=== PATIENT | female | born 1960 | race American Indian/Alaskan Native ===

== ENCOUNTER 2018-03-11 14:23 | Inpatient (IN) | payer OTHER ==
--- NOTE | 2018-03-11 15:17 | XRay Report ---
AP CHEST: HISTORY: chest pain AP view of the chest demonstrates a normal mediastinal and cardiac contour with clear lungs and normal bony and soft tissue structures. IMPRESSION: Unremarkable AP chest.
[2018-03-11 15:34] LABS: Basophils % (Auto) 0.8 % (0.0-1.8); Eosinophils # (Auto) 0.2 K/mm3 (0.0-0.4); Hematocrit 38.9 % (30.3-42.9); Hemoglobin 13.3 gm/dl (10.1-14.3); Lymphocytes # (Auto) 2.1 K/mm3 (1.2-5.4); Lymphocytes % (Auto) 36.2 % (13.4-35.0); Mean Corpuscular HGB Conc 34 % (30-34); Mean Corpuscular Volume 92 fl (79-97); Monocytes # (Auto) 0.6 K/mm3 (0.0-0.8); Platelet Count 241 K/mm3 (140-440); Red Blood Count 4.21 M/mm3 (3.65-5.03); Red Cell Distribution Width 13.7 % (13.2-15.2)
[2018-03-11] MEDS ORDERED: NITRO-BID 2% TP ONE (15:36)
[2018-03-11] MEDS ORDERED: SUBLIMAZE IV ONE (15:36)
[2018-03-11] MEDS ORDERED: ASPIRIN PO ONE (15:36)
[2018-03-11] MEDS ORDERED: ZOFRAN IV ONE (15:36)
[2018-03-11 15:42] LABS: INR 0.97 (0.87-1.13)
[2018-03-11 15:43] LABS: Partial Thromboplastin Time 30.3 Sec. (24.2-36.6)
--- NOTE | 2018-03-11 15:52 | Emergency Department Report ---
HPI - General Chief Complaint: Chest Pain Time Seen by Provider: 03/11/18 15:26 - HPI HPI: Room 20 The patient is a 57-year-old female presenting with chief complaint chest pain. The patient states today at 13:00 while sitting at her desk she developed substernal chest pain sharp in nature. Patient states the pain is been intermittent. Patient denies shortness of breath, nausea/vomiting or diaphoresis. Patient states she was given sublingual nitroglycerin by EMS and her pain improved. Patient states now her pain is coming back. Patient gets h er pain score of 4/10. The patient states her last stress test occurred approximately 2 years ago she's never had a cardiac catheterization Location: Chest Duration: Intermittent since 13:00 Quality: Sharp Severity: 4/10 Modifying factors: [see above] Context: [see above] Mode of transportation: [not driving] ED Past Medical Hx - Past Medical History Previous Medical History?: Yes Hx Hypertension: Yes Additional medical history: Uterine Ca remission - Surgical History Past Surgical History?: No Additional Surgical History: Hysterectomy, - Social History Smoking Status: Former Smoker (none 2 years) Substance Use Type: None (denies illicit drug use), Alcohol (occasional) ED Review of Systems ROS: Stated complaint: CHEST PAIN Other details as noted in HPI Constitutional: denies: diaphoresis Eyes: denies: eye pain ENT: denies: throat pain Respiratory: denies: shortness of breath Cardiovascular: chest pain Endocrine: no symptoms reported Gastrointestinal: denies: nausea, vomiting Genitourinary: denies: dysuria Musculoskeletal: denies: back pain Neurological: denies: headache Physical Exam - Physical Exam Vital Signs: Vital Signs 03/11/18 03/11/18 03/11/18 14:39 14:45 15:00 Temperature 97.9 F Pulse Rate 69 72 74 Respiratory 16 10 L Rate Blood Pressure 162/78 162/78 O2 Sat by Pulse 96 95 Oximetry 03/11/18 15:30 Temperature Pulse Rate 74 Respiratory 18 Rate Blood Pressure 154/88 O2 Sat by Pulse 95 Oximetry Physical Exam: GENERAL: The patient is well-developed well-nourished female sitting on stretcher appearing to be in mild discomfort. [] HEENT: Normocephalic. Atraumatic. Extraocular motions are intact. Patient has moist mucous membranes. NECK: Supple. Trachea midline CHEST/LUNGS: Clear to auscultation. There is no respiratory distress noted. HEART/CARDIOVASCULAR: Regular. There is no tachycardia. There is no gallop rub or murmur. ABDOMEN: Abdomen is soft, nontender. Patient has normal bowel sounds. There is no abdominal distention. SKIN: There is no rash. There is trace bilateral lower extremity pitting edema. There is no diaphoresis. NEURO: The patient is awake, alert, and oriented. The patient is cooperative. The patient has normal speech MUSCULOSKELETAL: There is no evidence of acute injury. ED Course Vital Signs 03/11/18 03/11/18 03/11/18 14:39 14:45 15:00 Temperature 97.9 F Pulse Rate 69 72 74 Respiratory 16 10 L Rate Blood Pressure 162/78 162/78 O2 Sat by Pulse 96 95 Oximetry 03/11/18 15:30 Temperature Pulse Rate 74 Respiratory 18 Rate Blood Pressure 154/88 O2 Sat by Pulse 95 Oximetry ED Medical Decision Making - Lab Data Result diagrams: 03/11/18 14:58 03/11/18 14:58 Laboratory Tests 03/11/18 03/11/18 03/11/18 14:58 14:58 14:58 WBC 5.7 RBC 4.21 Hgb 13.3 Hct 38.9 MCV 92 MCH 32 MCHC 34 RDW 13.7 Plt Count 241 Lymph % (Auto) 36.2 H [place] % (Auto) 10.0 H Eos % (Auto) 3.0 Baso % (Auto) 0.8 Lymph # 2.1 [place] # 0.6 Eos # 0.2 Baso # 0.0 Seg Neutrophils % 50.0 Seg Neutrophils # 2.9 PT 13.3 INR 0.97 APTT 30.3 Sodium 140 Potassium 4.0 Chloride 102.5 Carbon Dioxide 26 Anion Gap 16 BUN 15 Creatinine 0.8 Estimated GFR > 60 BUN/Creatinine Ratio 19 Glucose 96 Calcium 9.4 Total Bilirubin 0.60 AST 24 ALT 20 Alkaline Phosphatase 95 Troponin T < 0.010 Total Protein 7.8 Albumin 4.0 Albumin/Globulin Ratio 1.1 - EKG Data -: EKG Interpreted by Ar EKG shows normal: sinus rhythm Rate: normal - EKG Data When compared to previous EKG there are: previous EKG unavailable Interpretation: nonspecific ST-T wave peace (T-wave inversions in leads 3 and V3) - Radiology Data Radiology results: report reviewed (chest x-ray), image reviewed (chest x-ray) interpreted by me: Chest x-ray-no focal infiltrates, no pneumothorax [facility] [address] [place] [address] XRay Report Signed Patient: JIMENEZ MARCUS MR#: [id number] : 1960 Acct:[id number] Age/Sex: 57 / F ADM Date: 03/11/18 Loc: ED Attending Dr: Ordering Physician: KIRTI DUFFY MD Date of Service: 03/11/18 Procedure(s): XR chest 1V ap Accession Number(s): [id number] cc: ED MD TATI Fluoro Time In Minutes: AP CHEST: HISTORY: chest pain AP view of the chest demonstrates a normal mediastinal and cardiac contour with clear lungs and normal bony and soft tissue structures. IMPRESSION: Unremarkable AP chest. Transcribed By: TTR Dictated By: TU TUCKER JR, MD Electronically Authenticated By: TU TUCKER JR, MD Signed Date/Time: 03/11/181514 DD/ 14 TD/TT: 03/11/181514 - Differential Diagnosis ACS, pericarditis, GERD Critical care attestation.: If time is entered above; I have spent that time in minutes in the direct care of this critically ill patient, excluding procedure time. ED Disposition Clinical Impression: Chest pain Disposition: OP ADMIT IP TO THIS HOSP Is pt being admited?: Yes Does the pt Need Aspirin: Yes Condition: Fair Instructions: Chest Pain (ED) Referrals: PRIMARY CARE, [Primary Care Provider] - 3-5 Days Time of Disposition: 15:58 (hospitalist paged (Dr Godfrey))
[2018-03-11 15:55] LABS: Alanine Aminotransferase 20 units/L (7-56); BUN/Creatinine Ratio 19; Blood Urea Nitrogen 15 mg/dL (7-17); Calcium 9.4 mg/dL (8.4-10.2); Hemolysis Index 4
--- NOTE | 2018-03-11 16:19 | History and Physical Report ---
History of Present Illness Chief complaint: My chest hurts History of present illness: 57 YO Female with HTN, Uterine Cancer, Obesity presents to ED for evaluation. Pt states that she has experienced pain in her chest over the past 1 day. Pt states that she experienced acute onset of pain in her chest around 1300 hrs. Pt states that pain is 4-8/10, midsternal, sharp, crushing in nature, intermittent, nonradiating, not worsened with exertion, not relieved with rest, relieved with nitro. Pt acknowledges shortness of breath and decreased exercise tolerance. EMS notified, and upon arrival, the patient found to have symptoms consistent with ACS. Pt transported to [facility] for further care and evaluation. Pt seen and ev aluated in ED and found to have symptoms consistent with ACS as well as Diastolic CHF. Pt admitted to telemetry. Cardiology consulted in ED. Past History Past Medical History: cancer, hypertension Past Surgical History: hysterectomy Social history: single. denies: smoking, alcohol abuse, prescription drug abuse Family history: hypertension Medications and Allergies Allergies Allergy/AdvReac Type Severity Reaction Status Date / Time No Known Allergies Allergy Unverified 03/11/18 14:45 Review of Systems Constitutional: no weight loss, no weight gain, no fever, no chills Ears, nose, mouth and throat: no ear pain, no ear discharge, no tinnitis, no decreased hearing, no nose pain, no nasal congestion Breasts: no change in shape, no swelling, no mass Cardiovascular: chest pain, shortness of breath, dyspnea on exertion, decreased exercise tolerance, no palpitations, no rapid/irregular heart beat Respiratory: no cough, no cough with sputum, no excessive sputum Gastrointestinal: no nausea, no vomiting, no diarrhea, no constipation Genitourinary Female: no pelvic pain, no flank pain, no menorrhagia, no dysuria, no urinary frequency Rectal: no pain, no incontinence, no bleeding Musculoskeletal: no neck stiffness, no neck pain, no shooting arm pain, no arm numbness/tingling Integumentary: no rash, no pruritis, no redness, no sores, no wounds Neurological: no transient paralysis, no paralysis, no weakness, no parathesias, no numbness, no tingling Psychiatric: no memory loss, no change in sleep habits, no sleep disturbances, no insomnia, no hypersomnia, no change in appetite Endocrine: no cold intolerance, no heat intolerance, no polyphagia, no excessive thirst, no polydipsia, no polyuria Hematologic/Lymphatic: no easy bruising, no easy bleeding, no lymphadenopathy, no lymphedema Allergic/Immunologic: no urticaria, no allergic rhinitis, no wheezing, no persistent infections, no anaphylaxis, no angioedema Exam - Constitutional Vitals: Temp Pulse Resp BP Pulse Ox 97.9 F 74 18 154/88 95 03/11/18 14:45 03/11/18 15:30 03/11/18 15:30 03/11/18 15:30 03/11/18 15:30 General appearance: Present: mild distress - EENT Eyes: Present: PERRL ENT: hearing intact, clear oral mucosa - Neck Neck: Present: supple, normal ROM - Respiratory Respiratory effort: normal Respiratory: bilateral: CTA - Cardiovascular Heart Sounds: Present: S1 & S2. Absent: rub, click - Extremities Extremities: pulses symmetrical Extremity abnormal: edema Peripheral Pulses: within normal limits - Abdominal General gastrointestinal: Present: soft, non-tender, non-distended, normal bowel sounds Female genitourinary: Present: normal - Integumentary Integumentary: Present: clear, warm, dry - Musculoskeletal Musculoskeletal: gait normal, strength equal bilaterally - Psychiatric Psychiatric: appropriate mood/affect, intact judgment & insight - Neurologic Neurologic: CNII-XII intact, moves all extremities Results - Labs CBC & Chem 7: 03/11/18 14:58 03/11/18 14:58 Labs: Abnormal lab results 03/11/18 Range/Units 14:58 Lymph % (Auto) 36.2 H (13.4-35.0) % [place] % (Auto) 10.0 H (0.0-7.3) % Assessment and Plan - Patient Problems (1) ACS (acute coronary syndrome) Current Visit: Yes Status: Acute Plan to address problem: Admit to telemetry, serial cardiac enzymes, ekg, telemetry, morphine, supplemental oxygen, nitro, aspirin (2) Diastolic CHF Current Visit: Yes Status: Acute Qualifiers: Heart failure chronicity: acute on chronic Qualified Code(s): I50.33 - Acute on chronic diastolic (congestive) heart failure Plan to address problem: Admit to telemetry, echo, strict I/O, thyroid panel, bnp, d dimer, supportive care, chest x ray, pulse oximetry (3) HTN (hypertension) Current Visit: Yes Status: Acute Qualifiers: Hypertension type: essential hypertension Qualified Code(s): I10 - E ssential (primary) hypertension Plan to address problem: Monitor BP q shift, continue medical management (4) Obesity (BMI 30-39.9) Current Visit: Yes Status: Acute Plan to address problem: Balanced diet, increased physical activity, supportive care (5) DVT prophylaxis Current Visit: Yes Status: Acute Plan to address problem: scd to BLE while in bed.
[2018-03-11] MEDS ORDERED: PROVENTIL IH PRN (16:37)
[2018-03-11] MEDS ORDERED: ZOFRAN IV PRN (16:37)
[2018-03-11] MEDS ORDERED: SODIUM CHLORIDE FLUSH SYRINGE 10 ML IV PRN ×2 (16:37)
[2018-03-11] MEDS ORDERED: MORPHINE IV PRN (16:37)
[2018-03-11 17:20] LABS: Chol/HDL Ratio 2.62 %
[2018-03-11] MEDS: TYLENOL PO PRN (21:02)
[2018-03-11] MEDS: PEPCID PO SCH (21:02)
[2018-03-11] MEDS: SODIUM CHLORIDE FLUSH SYRINGE 10 ML IV SCH (21:03)
[2018-03-12] MEDS ORDERED: LEXISCAN IV ONE ×2 (09:18)
--- NOTE | 2018-03-12 11:21 | Consultation ---
History of Present Illness Consult date: 03/12/18 Consult reason: chest pain History of present illness: 57-year-old woman with no prior cardiac history, presented to the hospital with single episode of substernal chest pain which occurred while at work. In the emergency room, ECG was normal sinus rhythm, normal ECG. Cardiac isoenzymes were negative. She was admitted for cardiac chest pain workup. Today, she underwent a stress test in which she exercised for 6 minutes of the Gopal protocol, completed stage II, and achieved 7 Mets. Test was stopped for fatigue. There was no chest pain with exercise. The ECGs were sinus rhythm at baseline, on with exercise, there were no ST changes of ischemia. Myocardial perfusion imaging is pending for final interpretation. Past History Past Medical History: cancer, hypertension Past Surgical History: hysterectomy Social history: single. denies: smoking, alcohol abuse, prescription drug abuse Family history: hypertension Medications and Allergies Allergies Allergy/AdvReac Type Severity Reaction Status Date / Time No Known Allergies Allergy Unverified 03/11/18 14:45 Active Meds: Active Medications Acetaminophen (Tylenol) 650 mg PO Q4H PRN PRN Reason: Pain MILD(1-3)/Fever >100.5/CALDERON Last Admin: 03/11/18 21:02 Dose: 650 mg Documented by: Albuterol (Proventil) 2.5 mg IH Q4HRT PRN PRN Reason: Shortness Of Breath Famotidine (Pepcid) 20 mg PO BID [facility] Last Admin: 03/11/18 21:02 Dose: 20 mg Documented by: Morphine Sulfate (Morphine) 2 mg IV Q4H PRN PRN Reason: Pain, Moderate (4-6) Ondansetron HCl (Zofran) 4 mg IV Q8H PRN PRN Reason: Nausea And Vomiting Sodium Chloride (Sodium Chloride Flush Syringe 10 Ml) 10 ml IV BID [facility] Last Admin: 03/11/18 21:03 Dose: 10 ml Documented by: Sodium Chloride (Sodium Chloride Flush Syringe 10 Ml) 10 ml IV PRN PRN PRN Reason: LINE FLUSH Sodium Chloride (Sodium Chloride Flush Syringe 10 Ml) 10 ml IV PRN PRN PRN Reason: LINE FLUSH Review of Systems Cardiovascular: chest pain, no orthopnea, no palpitations, no rapid/irregular heart beat, no edema, no syncope, no lightheadedness, no shortness of breath Physical Examination Vital Signs Pulse 69 03/11/18 14:39 General appearance: no acute distress HEENT: Positive: PERRL Neck: Positive: neck supple Cardiac: Positive: Reg Rate and Rhythm Lungs: Positive: clear to auscultation Neuro: Positive: Grossly Intact Abdomen: Positive: Soft Female genitourinary: deferred Skin: Positive: Clear Extremities: Absent: edema Results 03/11/18 14:58 03/11/18 14:58 Cardiac Enzymes 03/11/18 Range/Units 14:58 AST 24 (5-40) units/L Coagulation 03/11/18 Range/Units 14:58 PT 13.3 (12.2-14.9) Sec. INR 0.97 (0.87-1.13) APTT 30.3 (24.2-36.6) Sec. Lipids 03/11/18 Range/Units 14:58 Triglycerides 54 (2-149) mg/dL Cholesterol 155 (50-199) mg/dL HDL Cholesterol 59 (40-59) mg/dL Cholesterol/HDL Ratio 2.62 % CBC 03/11/18 Range/Units 14:58 WBC 5.7 (4.5-11.0) K/mm3 RBC 4.21 (3.65-5.03) M/mm3 Hgb 13.3 (10.1-14.3) gm/dl Hct 38.9 (30.3-42.9) % Plt Count 241 (140-440) K/mm3 Lymph # 2.1 (1.2-5.4) K/mm3 [place] # 0.6 (0.0-0.8) K/mm3 Eos # 0.2 (0.0-0.4) K/mm3 Baso # 0.0 (0.0-0.1) K/mm3 Comprehensive Metabolic Panel 03/11/18 Range/Units 14:58 Sodium 140 (137-145) mmol/L Potassium 4.0 (3.6-5.0) mmol/L Chloride 102.5 (98-107) mmol/L Carbon Dioxide 26 (22-30) mmol/L BUN 15 (7-17) mg/dL Creatinine 0.8 (0.7-1.2) mg/dL Glucose 96 (65-100) mg/dL Calcium 9.4 (8.4-10.2) mg/dL AST 24 (5-40) units/L ALT 20 (7-56) units/L Alkaline Phosphatase 95 (35-129) units/L Total Protein 7.8 (6.3-8.2) g/dL Albumin 4.0 (3.9-5) g/dL EKG interpretations - Telemetry EKG Rhythm: Sinus Rhythm Assessment and Plan - Patient Problems (1) Chest pain Current Visit: Yes Status: Acute Plan to address problem: Chest pain is somewhat atypical, ECG is normal, cardiac enzymes are normal, final stress test imaging report is pending.
[2018-03-12] MEDS: SODIUM CHLORIDE FLUSH SYRINGE 10 ML IV SCH ×2 (14:16→22:13)
[2018-03-12] MEDS: PEPCID PO SCH ×2 (14:16→22:13)
--- NOTE | 2018-03-12 14:28 | Cat Scan Report ---
CTA CHEST: HISTORY: chest pain. COMPARISON: none. TECHNIQUE: Helical CT in 1.25mm intervals following IV contrast. Pulmonary embolus protocol. Sagittal and coronal reformatted images. Rotational MIP images. FINDINGS: Contrast bolus is satisfactory. No pulmonary embolus is identified. Thyroid gland: Normal. Tracheobronchial tree: Normal. Esophagus: Normal. Heart: Normal. Pericardium: Normal. Mediastinum: Normal. Lung [place]: Normal. Pleural Spaces: Normal. Musculoskeletal: Normal. IMPRESSION: No evidence for pulmonary embolus. Unremarkable CT chest with contrast.
[2018-03-12 20:30] LABS: Bilirubin,Urine NEG (Negative); Blood,Urine NEG (Negative); Color,Urine Yellow (Yellow); Protein,Urine <15 mg/dL mg/dL (Negative); RBC,Urine < 1.0 /HPF (0.0-6.0); Urobilinogen,Urine < 2.0 mg/dL (<2.0)
--- NOTE | 2018-03-12 21:08 | Treadmill Report ---
THALLIUM STRESS TEST LEFT VENTRICLE: Left ventricular chamber size is within normal spread. Perfusion study demonstrates small fixed basal anterior defect of mild intensity, consistent with breast attenuation artifact. No significant reversible defects identified. Gated analysis demonstrates normal left ventricular systolic function, ejection fraction of 68%. CONCLUSION: Suboptimal perfusion study, no demonstrable ischemic coronary disease. Negative study. JOB# [id number] CA/NTS
[2018-03-12] MEDS: FLONASE NS SCH (22:42)
[2018-03-13 08:16] VITALS: BP 155/85
--- NOTE | 2018-03-13 08:18 | Progress Note ---
Assessment and Plan Assessment and plan: 57 YO Female with HTN, Uterine Cancer, Obesity who pw chest pain, acs ruled out, for MPI and CTA chest today given elevated d dimer -optimize bp meds -cardiology consult Dx HTN Chest pain History Interval history: no cp, no sob, no n/v/d no fever, no chills, no seizures, no agitation Hospitalist Physical - Constitutional Vitals: Temp Pulse Resp BP Pulse Ox 97.9 F 65 20 155/85 97 03/13/18 08:15 03/13/18 08:15 03/13/18 08:15 03/13/18 08:15 03/13/18 08:15 General appearance: Present: no acute distress - EENT Eyes: Present: PERRL ENT: hearing intact - Neck Neck: Present: supple - Respiratory Respiratory effort: normal Respiratory: bilateral: CTA - Cardiovascular Rhythm: regular Heart Sounds: Present: S1 & S2 - Extremities Extremities: no ischemia, No edema Peripheral Pulses: within normal limits - Abdominal General gastrointestinal: soft, non-tender - Integumentary Integumentary: Present: clear, warm - Psychiatric Psychiatric: appropriate mood/affect, intact judgment & insight - Neurologic Neurologic: CNII-XII intact, moves all extremities Results - Labs CBC & Chem 7: 03/11/18 14:58 03/11/18 14:58 Labs: Laboratory Last Values WBC 5.7 K/mm3 (4.5-11.0) 03/11/18 14:58 RBC 4.21 M/mm3 (3.65-5.03) 03/11/18 14:58 Hgb 13.3 gm/dl (10.1-14.3) 03/11/18 14:58 Hct 38.9 % (30.3-42.9) 03/11/18 14:58 MCV 92 fl (79-97) 03/11/18 14:58 MCH 32 pg (28-32) 03/11/18 14:58 MCHC 34 % (30-34) 03/11/18 14:58 RDW 13.7 % (13.2-15.2) 03/11/18 14:58 Plt Count 241 K/mm3 (140-440) 03/11/18 14:58 Lymph % (Auto) 36.2 % (13.4-35.0) H 03/11/18 14:58 [place] % (Auto) 10.0 % (0.0-7.3) H 03/11/18 14:58 Eos % (Auto) 3.0 % (0.0-4.3) 03/11/18 14:58 Baso % (Auto) 0.8 % (0.0-1.8) 03/11/18 14:58 Lymph # 2.1 K/mm3 (1.2-5.4) 03/11/18 14:58 [place] # 0.6 K/mm3 (0.0-0.8) 03/11/18 14:58 Eos # 0.2 K/mm3 (0.0-0.4) 03/11/18 14:58 Baso # 0.0 K/mm3 (0.0-0.1) 03/11/18 14:58 Seg Neutrophils % 50.0 % (40.0-70.0) 03/11/18 14:58 Seg Neutrophils # 2.9 K/mm3 (1.8-7.7) 03/11/18 14:58 PT 13.3 Sec. (12.2-14.9) 03/11/18 14:58 INR 0.97 (0.87-1.13) 03/11/18 14:58 APTT 30.3 Sec. (24.2-36.6) 03/11/18 14:58 D-Dimer 433.6 ng/mlDDU (0-234) H 03/11/18 14:58 Sodium 140 mmol/L (137-145) 03/11/18 14:58 Potassium 4.0 mmol/L (3.6-5.0) 03/11/18 14:58 Chloride 102.5 mmol/L (98-107) 03/11/18 14:58 Carbon Dioxide 26 mmol/L (22-30) 03/11/18 14:58 Anion Gap 16 mmol/L 03/11/18 14:58 BUN 15 mg/dL (7-17) 03/11/18 14:58 Creatinine 0.8 mg/dL (0.7-1.2) 03/11/18 14:58 Estimated GFR > 60 ml/min 03/11/18 14:58 BUN/Creatinine Ratio 19 % 03/11/18 14:58 Glucose 96 mg/dL (65-100) 03/11/18 14:58 Calcium 9.4 mg/dL (8.4-10.2) 03/11/18 14:58 Total Bilirubin 0.60 mg/dL (0.1-1.2) 03/11/18 14:58 AST 24 units/L (5-40) 03/11/18 14:58 ALT 20 units/L (7-56) 03/11/18 14:58 Alkaline Phosphatase 95 units/L (35-129) 03/11/18 14:58 Troponin T < 0.010 ng/mL (0.00-0.029) 03/12/18 00:13 NT-Pro-B Natriuret Pep 28.97 pg/mL (0-900) 03/11/18 14:58 Total Protein 7.8 g/dL (6.3-8.2) 03/11/18 14:58 Albumin 4.0 g/dL (3.9-5) 03/11/18 14:58 Albumin/Globulin Ratio 1.1 % 03/11/18 14:58 Triglycerides 54 mg/dL (2-149) 03/11/18 14:58 Cholesterol 155 mg/dL (50-199) 03/11/18 14:58 LDL Cholesterol Direct 98 mg/dL (50-130) 03/11/18 14:58 HDL Cholesterol 59 mg/dL (40-59) 03/11/18 14:58 Cholesterol/HDL Ratio 2.62 % 03/11/18 14:58 Urine Color Yellow (Yellow) 03/12/18 19:49 Urine Turbidity Clear (Clear) 03/12/18 19:49 Urine pH 6.0 (5.0-7.0) 03/12/18 19:49 Ur Specific [place] > 1.059 (1.003-1.030) H 03/12/18 19:49 Urine Protein <15 mg/dl mg/dL (Negative) 03/12/18 19:49 Urine Glucose (UA) Neg mg/dL (Negative) 03/12/18 19:49 Urine Ketones Neg mg/dL (Negative) 03/12/18 19:49 Urine Blood Neg (Negative) 03/12/18 19:49 Urine Nitrite Neg (Negative) 03/12/18 19:49 Urine Bilirubin Neg (Negative) 03/12/18 19:49 Urine Urobilinogen < 2.0 mg/dL (<2.0) 03/12/18 19:49 Ur Leukocyte Esterase Neg (Negative) 03/12/18 19:49 Urine WBC (Auto) 1.0 /HPF (0.0-6.0) 03/12/18 19:49 Urine RBC (Auto) < 1.0 /HPF (0.0-6.0) 03/12/18 19:49 U Epithel Cells (Auto) 3.0 /HPF (0-13.0) 03/12/18 19:49
--- NOTE | 2018-03-13 08:21 | Discharge Summary ---
Providers - Providers Date of Admission: 03/11/18 18:37 Attending physician: TORY RAINES MD 03/11/18 Consult to Cardiac Rehabilitation [CONS] Routine Reason For Exam: Phase I 03/11/18 16:37 Consult to Cardiology [CONS] Routine Consulting Provider: ROVERTO ARMANDO Reason For Exam: acs Primary care physician: CHAIM IGNACIO MD Hospitalization Condition: Fair Hospital course: 57 YO Female with HTN, Uterine Cancer, Obesity who pw chest pain, acs ruled out, neg ce -had MPI which was neg, CTA chest negative, Echo show slightly reduced EF of 45- 50% -cardiology consulted who recommended continued medical mgt, 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, Dr Nayak within 1-2 weeks of dc -her BP was elevated, therefore bp meds were optimized prior to dc Dx HTN ugency Chest pain due to htn urgency mild systolic chf, stable and chronic Disposition: DC-01 TO HOME OR SELFCARE Time spent for discharge: 33 minutes Core Measure Documentation - Palliative Care Palliative Care/ Comfort Measures: Not Applicable - Core Measures Any of the following diagnoses?: heart failure - Heart Failure Discharge Requirements AAYUSH/ARB for LVSD if EF <40%: Not Applicable Beta shanelle at discharge: Yes Exam - Constitutional Vitals: Temp Pulse Resp BP Pulse Ox 97.9 F 65 20 155/85 97 03/13/18 08:15 03/13/18 08:15 03/13/18 08:15 03/13/18 08:15 03/13/18 08:15 General appearance: Present: no acute distress, well-nourished - EENT Eyes: Present: PERRL ENT: hearing intact, clear oral mucosa - Neck Neck: Present: supple, normal ROM - Respiratory Respiratory effort: normal Respiratory: bilateral: CTA - Cardiovascular Heart Sounds: Present: S1 & S2. Absent: rub, click - Extremities Extremities: pulses symmetrical, No edema Peripheral Pulses: within normal limits - Abdominal General gastrointestinal: Present: soft, non-tender, non-distended, normal bowel sounds Female genitourinary: Present: normal - Integumentary Integumentary: Present: clear, warm, dry - Musculoskeletal Musculoskeletal: gait normal, strength equal bilaterally - Psychiatric Psychiatric: appropriate mood/affect, intact judgment & insight - Neurologic Neurologic: CNII-XII intact, moves all extremities Plan Follow up with: PRIMARY CARE, [Primary Care Provider] - 3-5 Days Forms: Work/School Release Form Prescriptions: Losartan/Hydrochlorothiazide [Losartan-Hctz 100-25 mg Tab] 1 each PO DAILY #30 tablet Metoprolol Succinate [Toprol Xl] 25 mg PO DAILY #30 tab.er.24h
[2018-03-13] MEDS: FLONASE NS SCH (10:52)
[2018-03-13] MEDS: PEPCID PO SCH (10:53)
[2018-03-13] MEDS: TYLENOL PO PRN (10:59)
[2018-03-13] MEDS: SODIUM CHLORIDE FLUSH SYRINGE 10 ML IV SCH (11:01)
--- NOTE | 2018-03-13 11:47 | Progress Note ---
Assessment and Plan - Patient Problems (1) Chest pain Current Visit: Yes Status: Acute Plan to address problem: Chest pain, atypical ECG is normal, cardiac enzymes are normal Normal stress thallium test this admission. EF 45-50% by echocardiogram. No further cardiac workup indicated. We will sign off. Subjective Date of service: 03/13/18 Interval history: Patient reports she is chest pain free. No cardiac events overnight. Objective Vital Signs Temp Pulse Resp BP Pulse Ox 03/13/18 08:15 97.9 F 65 20 155/85 97 03/13/18 07:00 66 03/13/18 03:46 98.0 F 66 12 132/68 94 03/12/18 22:27 98.0 F 65 16 135/77 93 03/12/18 20:00 82 03/12/18 19:53 97.9 F 79 12 139/67 93 03/12/18 16:44 97.7 F 79 16 152/61 97 03/12/18 13:22 98.4 F 96 H 16 94/71 99 03/12/18 13:14 98.3 F 80 16 127/75 96 - Physical Examination General: No Apparent Distress HEENT: Positive: PERRL Neck: Positive: neck supple Cardiac: Positive: Reg Rate and Rhythm Lungs: Positive: Decreased Breath Sounds Neuro: Positive: Grossly Intact Abdomen: Positive: Soft Extremities: Absent: edema
[2018-03-14] MEDS ORDERED: COZAAR PO ONE (13:00)
== END 2018-03-13 17:50 | disposition home or self-care (01) | DRG 313 ==
LOC: ED 14:23 → 4A 18:37
PROVIDERS: ADMIT Internal Medicine; ATTEND Internal Medicine
DX: R07.89 Other chest pain (principal); I50.33 Acute on chronic diastolic (congestive) heart failure; I11.0 Hypertensive heart disease with heart failure; E66.9 Obesity, unspecified; Z68.35 Body mass index [BMI] 35.0-35.9, adult; Z90.710 Acquired absence of both cervix and uterus; Z82.49 Family history of ischemic heart disease and other diseases of the circulatory system; Z87.891 Personal history of nicotine dependence
CPT/HCPCS: 36415; 71045; 71275; 78452; 80053; 80061; 81001; 83880; 84484; 85025; 85379; 85610; 85730; 87086; 93005; 93010; 93017; 93306; G0378; A9502; J2405; J2785; J3010; Q9967